=== PATIENT | male | born 1985 | race African-American/Black ===

== ENCOUNTER 2017-02-17 19:57 | Inpatient (IN) | payer MEDICAID ==
[~2017-02-17] VITALS: Ht 180.3 cm; Wt 71.7 kg
--- NOTE | 2017-02-17 20:00 | NUR ---
TO BED 8 A 31 YO MALE BIBRA [address] AND [employer] FOR SI, UNCOOPERATIVE DURING TRIAGE Addendum: 02/17/17 at 2323 by MUY TO BED 8 A 31 YO MALE [employer] [address] AND [employer] FOR SI. PATIENT VERBALIZED, "IM GOING TO KILL MYSELF IN ANY POSSIBLE WAY." PATIENT IS AAOX2, REFUSED TO ANSWER QUESTIONS. UNCOOPERATIVE. AGGRESSIVE. DOES NOT FOLLOW INSTRUCTIONS. INITIATED SAFETY AND SUICIDE PRECAUSTIONS. OFFLINE EDITOR YOU NOTIFIED. RECEIVED ORDERS. WILL MONITOR PATIENT.
[2017-02-17] MEDS ORDERED: LORAZEPAM INJ 2 MG/ML VIAL ONE (20:56)
[2017-02-17] MEDS ORDERED: LIDOCAINE 2% JEL UROJET 10 ML MM ONE (20:58)
[2017-02-17] MEDS ORDERED: HALOPERIDOL LACTATE INJ 5 MG/ML VIAL ONE (21:00)
[2017-02-17] MEDS ORDERED: LORAZEPAM INJ 2 MG/ML VIAL IM ONE (21:00)
--- NOTE | 2017-02-17 21:12 | NUR ---
urine sample collected via clean catch. called lab for fruit picker.
--- NOTE | 2017-02-17 21:15 | NUR ---
WASTED LIDOCAINE UROJECT ORDERED BY KATELIN ORTA. ORDER DC PATIENT AGREED TO URINATE THROUGH A URINAL AND GIVE SAMPLE FOR TESTING.
[2017-02-17] MEDS ORDERED: HALOPERIDOL LACTATE INJ 5 MG/ML VIAL IM ONE (21:30)
[2017-02-17 21:37] LABS: APPEARANCE,URINE Clear (CLEAR); BILIRUBIN,URINE SMALL (NEGATIVE); BLOOD, URINE Negative Ery/uL (NEGATIVE); COLOR,URINE Yellow (YELLOW); KETONES,URINE 15 (NEGATIVE); LEUKOCYTE ESTERASE ,URINE Negative (NEGATIVE); NITRITE, URINE Negative (NEGATIVE); PH,URINE 5.5 (5.0-8.0); PROTEIN,URINE 30 mg/dl (NEGATIVE); UGLUCOSE Negative (NEGATIVE); UROBILINOGEN,URINE 0.2 EU/dL (0.2)
[2017-02-17 21:37] LABS: BASOPHILS % (AUTO) 0.4 % (0.0-2.0); EOSINOPHILS # (AUTO) 0.1 /CMM (0.0-0.7); HEMATOCRIT 51 % (39-51); LYMPHOCYTES # (AUTO) 3.1 /CMM (0.8-4.8); LYMPHOCYTES % (AUTO) 36.2 % (20.0-44.0); MEAN CORPUSCULAR HEMOGLOBIN 23 PG (26.0-33.0); MEAN CORPUSCULAR HGB CONC 31 g/dl (31.0-36.0); MEAN CORPUSCULAR VOLUME 74 fL (80-96); MONOCYTES # (AUTO) 0.6 /CMM (0.1-1.30); MONOCYTES % (AUTO) 7.1 % (2.0-12.0); NEUTROPHILS # (AUTO) 4.8 /CMM (1.8-8.9); NEUTROPHILS % (AUTO) 55.3 % (43.0-81.0); PLATELET COUNT (AUTO) 209 /CMM (150-450); RDW COEFFICIENT OF VARIATION 15.5 (11.5-15.0); WHITE BLOOD COUNT (AUTO) 8.6 K/uL (4.3-11.0)
[2017-02-17 21:43] LABS: CALCIUM, SERUM 9.1 mg/dL (8.5-10.1); CARBON DIOXIDE 18 mmol/L (21-32); CHLORIDE 99 mmol/L (98-107); CREATININE 2.1 mg/dL (0.6-1.3); GLUCOSE 120 mg/dL (74-106); POTASSIUM 3.5 mmol/L (3.5-5.1); SODIUM SERUM 140 mmol/L (136-145); UREA NITROGEN, BLOOD 23 mg/dL (7-18)
[2017-02-17 21:49] LABS: ALANINE AMINOTRANSFERASE 10 U/L (12-78); ALBUMIN 4.3 g/dL (3.4-5.0); ALCOHOL, BLOOD < 3 mg/dL (0-0); ALKALINE PHOSPHATASE 81 U/L (46-116); ASPARTATE AMINOTRANSFERASE 19 U/L (15-37); BILIRUBIN,DIRECT 0.2 mg/dL (0.0-0.2); BILIRUBIN,TOTAL 1.1 mg/dL (0.2-1.0); SALICYLATE 7.1 mg/dL (2.8-20.0); TOTAL PROTEIN, SERUM 8.2 g/dL (6.4-8.2)
[2017-02-17 21:50] LABS: ACETAMINOPHEN 0 ug/ml (10-30)
[2017-02-17 21:52] LABS: BACTERIA,URINE Rare /HPF (None Seen); RBC,URINE 0-2 /HPF (0-2); SQUAMOUS EPITHELIAL CELL,UR Few /HPF (None Seen); WBC,URINE 0-2 /HPF (0-3)
--- NOTE | 2017-02-17 23:02 | NUR ---
REPORT GIVEN TO GIOVANY HERNANDEZ FOR LAZARA.
--- NOTE | 2017-02-17 23:22 | NUR ---
started a saline lock on the left hand g20.
[2017-02-18 00:51] VITALS: BP 126/69
--- NOTE | 2017-02-18 00:51 | NUR ---
MS RN OPENING NOTES: RECEIVED PT FROM ED. PT REFUSES TO CHANGE INTO THE GOWN AND HAVE HIS SKIN ASSESSED AT THE MOMENT. PT JUST WANTS TO SLEEP. PT HAS IV ON L HAND #20G HEP LOCK. INITIAL VITAL SIGNS ARE 126/69 HR 79, PULSE OX 100%, AND TEMP 97.8 ; WILL CONTINUE TO MONITOR PT
--- NOTE | 2017-02-18 01:00 | NUR ---
TRANSPORTED PATIENT TO ROOM 320-2, NO INCIDENT NOTED. VSS.
[2017-02-18] MEDS ORDERED: Z GUARD REMEDY 2 OZ OINT TP PRN (01:30)
[2017-02-18] MEDS ORDERED: ONDANSETRON HCL/PF 4 MG/2 ML VIAL IVP PRN (01:30)
[2017-02-18] MEDS ORDERED: MAG HYDROX/AL HYDROX/SIMETH 30 ML UDC PO PRN (01:30)
[2017-02-18] MEDS ORDERED: MAGNESIUM HYDROXIDE 30 ML UDC PO PRN (01:30)
[2017-02-18] MEDS ORDERED: ACETAMINOPHEN 325 MG TABLET PO PRN (01:30)
[2017-02-18] MEDS ORDERED: ZOLPIDEM TARTRATE 5 MG TABLET PO PRN (01:30)
[2017-02-18] MEDS ORDERED: HYDROCODONE/APAP 5/325MG 1 EACH TABLET PO PRN (01:30)
[2017-02-18] MEDS ORDERED: IV SET PRIMARY PUMP SET 1 EA INFUS.SET MC ONE ×2 (01:33→17:04)
[2017-02-18] MEDS ORDERED: IV NS 0.9% 1,000 ML ONE (01:36)
[2017-02-18] MEDS: IV NS 0.9% 1,000 ML IV PRN ×2 (01:40→21:08)
--- NOTE | 2017-02-18 04:16 | NUR ---
MS RN NOTES: ATTEMPTED TO HAVE PT CHANGE IN GOWN AND HAVE HIS SKIN ASSESSED. PT DOES NOT WANT TO BE BOTHERED AT THIS TIME AND WOULD JUST LIKE TO SLEEP. WILL CONTINUE TO MONITOR PT.
--- NOTE | 2017-02-18 05:08 | NUR ---
MS RN NOTES: PT GOT UP ONCE TO USE THE BATHROOM. OFFERED PT TO CHANGE IN GOWN AND HAVE A LOOK AT HIS SKIN. PT REFUSED AGAIN AT THIS TIME. WAS ABLE TO CONNECT PT TO FLUIDS. WILL CONTINUE TO MONITOR PT.
--- NOTE | 2017-02-18 07:06 | NUR ---
MS RN CLOSING NOTES: PT IS IN BED ASLEEP. OFFERED PT MULTIPLE TIMES TO CHANGE IN GOWN AND BE ASSESSED FOR SKIN ISSUES BUT REFUSED AND RESUMED BACK TO SLEEPING. PT HAS SITTER AT BEDSIDE. PT HAS IV ON L HAND #20G AND IS PATENT AND INTACT. FLUIDS ARE INFUSING AT IV NS 0.9% 1,000ML AT 75ML/BED KEPT IN LOCKED, LOWEST POSITION, AND SIDE RAILS X 2 UP. ENDORSED TO AM NURSE FOR LAZARA.
--- NOTE | 2017-02-18 07:10 | NUR ---
MS/RN AM NOTES RECEIVED PATIENT IN BED, SLEEPING COMFORTABLY, NO S/SX SOB, OR DISTRESS, NO S/SX OF PAIN. . IV PERIPHERAL LINE ON LEFT HAND INTACT, PATENT. SITTER AT THE BEDSIDE, BED IN LOW POSITION, 2SR UP FOR SAFETY, WITH CALL LIGHT WITHIN EASY REACH. WILL CONTINUE TO MONITOR ACCORDINGLY
[2017-02-18 08:00] VITALS: BP 126/69
[2017-02-18] MEDS: PANTOPRAZOLE 40 MG TABLET.DR PO SCH (09:13)
[2017-02-18] MEDS ORDERED: QUETIAPINE FUMARATE 25 MG TABLET PO PRN (11:00)
[2017-02-18] MEDS ORDERED: DEXTROSE 50%-WATER 50 ML DISP.SYRIN IV PRN (11:00)
[2017-02-18] MEDS ORDERED: INSULIN REGULAR, HUMAN 100 UNIT/ML 3 ML VIAL SQ PRN (11:00)
[2017-02-18] MEDS: BLOOD SUGAR DIAGNOSTIC 1 EACH STRIP IN SCH ×3 (12:00→22:01)
--- NOTE | 2017-02-18 12:25 | NUR ---
PATIENT IS SLEEPING, REFUSED ACCU-CHECK, DOESN'T WANT TO BE BOTHERED. NO S/SX HYPO OR HYPERGLYCEMIA NOTED. RISKS AND CONSEQUENCES EXPLAINED
--- NOTE | 2017-02-18 17:24 | NUR ---
BLOOD SUGAR CHECKED, READING 116, NO COVERAGE, WITH GOOD APPETITE. PATIENT RECEIVED A SHOWER. GOWN PROVIDED. IN HAPPY MOOD. IV PERIPHERAL LINE REPLACED D/T POOLED OUT. STARTED PERIPHERAL IV LINE ON RIGHT WRIST 22 G, PATENT, INTACT, TOLERATED WELL, DENIES PAIN. WITH NS 75CC/H
--- NOTE | 2017-02-18 19:06 | NUR ---
MS/RN CLOSING NOTES PATIENT IS RESTING IN THE BED, COMFORTABLE , IN HAPPY MOOD, SITTER AT THE BEDSIDE, NO CHANGES IN CONDITION THROUGHOUT THE SHIFT. IV LINE LEFT WRIST INTACT, INFUSING NS 0.9%, 75 CC/H, NO S/SX FLUID OVERLOAD NOTED, BREATHING EVEN, UNLABORED, ON RA, SATURATION 98%. KEPT CLEAN, DRY, NEEDS MET IN TIMELY MANNER, WITH CALL LIGHT WITHIN EASY REACH ALL THE TIME. WILL ENDORSE TO THE NEXT SHIFT FOR LAZARA
--- NOTE | 2017-02-18 19:39 | NUR ---
MS MEÑO INITIAL NOTES RECEIVED REPORT FROM AM NURSE VAHID, CHECKED PT HE'S AWAKE AND ALERT WATCHING TV AT THIS TIME, PLEASANT WHEN YOU TALKED TO HIM , NO SUICIDAL IDEATION NOTED. STATED MUCH FEEL BETTER AFTER HE GOT REST FROM LAST NIGHT AND HAD SHOWER TODAY. NO AGITATION NOTED AT THIS TIME. IVF STILL INFUSING ON HIS RIGHT WRIST GAUGE 22 NS AT 75ML/HR. KEPT HIM SAFE AND COMFORTABLE AT ALL TIMES. WILL CONTINUE CLOSELY MONITORING.
[2017-02-18 19:56] VITALS: BP 102/71
--- NOTE | 2017-02-18 22:00 | NUR ---
CERTIFIED ORTHOTIST PRACTICE MANAGER/NOTES BLOOD SUGAR 101, NO SIGNS OF HYPO GLYCEMIA NOTED, NO INSULIN GIVEN. PT RESTING COMFORTABLY IN BED WITHOUT ANY ACUTE DISTRESS NOTED. SNACKS SERVED PER PT REQUESTED. WILL CONTINUE CLOSELY MONITORING.
--- NOTE | 2017-02-19 | NUR ---
RESEARCH SPEC/NOTES PT SLEEPING AT THIS TIME WITHOUT ANY ACUTE DISTRESS NOTED.
--- NOTE | 2017-02-19 04:00 | NUR ---
CASTING MACHINE SERVICE OPERATOR NOTES PT WOKE UP AND ASKING FOR SOMETHING TO EAT, COFFEE AND SANDWICH SERVED. NO SIGNS OF ANY AGITATION, NO SUICIDAL IDEATION NOTED.
--- NOTE | 2017-02-19 06:14 | NUR ---
STEAM FITTER SUPERVISOR/NOTES BLOOD SUGAR 159, NO INSULIN GIVEN PER PT REQUESTED TO HAVE IT LATER AFTER LUNCH. PER PT HES NOT TAKING ANY INSULIN AT ALL. NO SIGNS OF HYPER GLYCEMIA NOTED. WILL CONTINUE TO MONITOR.
[2017-02-19] MEDS: BLOOD SUGAR DIAGNOSTIC 1 EACH STRIP IN SCH ×3 (07:01→17:30)
[2017-02-19] MEDS: PANTOPRAZOLE 40 MG TABLET.DR PO SCH (07:02)
[2017-02-19] MEDS: IV NS 0.9% 1,000 ML IV PRN ×2 (07:02→10:11)
--- NOTE | 2017-02-19 07:16 | NUR ---
MS LAB SPECIALIST CLOSING NOTES PT RESTING WITH COVERED WITH A BLANKET BUT WHEN YOU STARTED TALKING TO HIM HE RESPONSE APPROPRIATELY, STABLE HERB THE NIGHT AND FOLLOWED INSTRUCTION. NO SIGNS OF ANY SUICIDAL IDEATION NOTED. NOT IN ANY DISCOMFORT OR ANY PAIN. ENDORSE TO AM NURSE ADAMS FOR CONTINUITY OF CARE. SITTER AT THE BEDSIDE FOR SAFETY.
[2017-02-19 07:32] LABS: BASOPHILS % (AUTO) 0.7 % (0.0-2.0); EOSINOPHILS # (AUTO) 0.1 /CMM (0.0-0.7); EOSINOPHILS % (AUTO) 1.4 % (0.0-6.0); HEMATOCRIT 45 % (39-51); HEMOGLOBIN 14.1 g/dL (13.5-17.5); LYMPHOCYTES # (AUTO) 2.2 /CMM (0.8-4.8); LYMPHOCYTES % (AUTO) 37.2 % (20.0-44.0); MEAN CORPUSCULAR HEMOGLOBIN 24 PG (26.0-33.0); MEAN CORPUSCULAR HGB CONC 32 g/dl (31.0-36.0); MEAN CORPUSCULAR VOLUME 76 fL (80-96); MONOCYTES # (AUTO) 0.4 /CMM (0.1-1.30); MONOCYTES % (AUTO) 7.6 % (2.0-12.0); NEUTROPHILS # (AUTO) 3.1 /CMM (1.8-8.9); NEUTROPHILS % (AUTO) 53.1 % (43.0-81.0); PLATELET COUNT (AUTO) 189 /CMM (150-450); RDW COEFFICIENT OF VARIATION 15.8 (11.5-15.0); WHITE BLOOD COUNT (AUTO) 5.8 K/uL (4.3-11.0)
[2017-02-19 07:52] LABS: ALBUMIN 3.2 g/dL (3.4-5.0); BILIRUBIN,TOTAL 0.5 mg/dL (0.2-1.0); CALCIUM, SERUM 8.2 mg/dL (8.5-10.1); CREATININE 1.3 mg/dL (0.6-1.3); MAGNESIUM 2.2 mg/dL (1.8-2.4); PHOSPHORUS 3.2 mg/dL (2.5-4.9); POTASSIUM 3.2 mmol/L (3.5-5.1); TOTAL PROTEIN, SERUM 6.2 g/dL (6.4-8.2)
[2017-02-19 08:00] VITALS: BP 114/70
--- NOTE | 2017-02-19 08:00 | NUR ---
m/s stamper blocker: initial assessment received pt in bed awake, a/ox4. denies si/hi at this time. pt remains on 1:1 sitter. no c/o pain or any discomfort. instructed to call for assistance. will continue to monitor.
[2017-02-19 09:02] LABS: CREATINE KINASE MB 2.3 ng/mL (0-3.6)
[2017-02-19] MEDS ORDERED: POTASSIUM CHLORIDE 20 MEQ POWDER PACKET PO ONE ×2 (10:00)
--- NOTE | 2017-02-19 10:00 | NUR ---
m/s ram car operator: md visit seen by fern mejia ([facility]) at this time. pt remains stable. denies si/hi a this time. pt for d'c planning today. awaiting orders. pt aware. will continue to monitor.
--- NOTE | 2017-02-19 10:23 | NUR ---
Social service consult requested by Eddieamber Scott for homelessness and suicidal ideation. Per H&P report Dr. Santos, pt. is a 31 year old male with no reported PMH and was brought in by ambulance from a sober living for suicidal ideation. Pt endorses auditory hallucinations that started 1 week ago but denies visual or tactile hallucinations. ELEAZAR met with pt. bedside. Pt. is A&O x 4. Pt. was cooperative with social insurance analyst during the assessment. Pt. is currently homeless. Pt. has been homeless for the past few months. Prior to being homeless pt. states he was "living with his folks". Pt. was evaluated yesterday by psychiatrist Dr. Erickson, however pt. was uncooperative. Pt. denies suicidal/homicidal ideations and visual/auditory hallucinations at this time. Pt. denies any history of psychiatric diagnosis and states he has had a psychiatric hospitalization as a minor. Pt. states he occasionally drinks (approximately 2 beers/wk), uses marijuana and smokes 1-2 packs of cigarettes per day. Pt. is currently unemployed and has no source of income. ELEAZAR offered half-way placement to pt. however pt. informed SW his girlfriend will be picking him up upon discharge and he will be residing in [place]. ELEAZAR gave pt. the following resources: Homeless patient resources that included food balderas, emergency housing and shelters, hot meals and showers, mens recovery programs, list of mental health services and contact information to [facility] located at [id number] [place] [address]. . Homeless patient waiver form was signed by pt. and placed in pt's chart. ELEAZAR updated pharmacist in charge Sarkis regarding discharge plan.
--- NOTE | 2017-02-19 11:00 | NUR ---
m/s comfort station supervisor: psych f/u seen by dr. childress and pt cleared for discharge.
--- NOTE | 2017-02-19 13:00 | NUR ---
m/s pack operator: notes pt resting comfortable in bed with no distress noted. denies si/hi at this time. sitter remains at bedside. will continue to monitor.
--- NOTE | 2017-02-19 15:30 | NUR ---
m/s show host/hostess: notes order received to d'c pt to and with Discharge instructions <02/19/2017. cleared by psychiatrist Follow, up with [facility] Smoking cessation education. order acknowledged.
--- NOTE | 2017-02-19 16:00 | NUR ---
m/s editor sound: d'c instructions discharge instructions given to pt and verbalized understanding, pt stated, "i will follow up at [facility]." h/l removed with tip intact with no bleeding, no swelling, and no redness noted. pt request to eat dinner and go after. cn made aware. early dinner ordered. instructed to call for assistance. pt denies si/hi when asked. pt medically stable for discharge and cleared by psychiatrist. will continue to monitor.
--- NOTE | 2017-02-19 17:00 | NUR ---
m/s hospital manager: notes early dinner served. awaiting for girlfriend to pick him up.
--- NOTE | 2017-02-19 18:05 | NUR ---
m/s track repair person: discharged discharged home accompanied by girlfriend via private car in stable condition. pt denies si/hi at time of discharged.
[2017-02-20 13:32] LABS: PTH, INTACT 22 pg/mL (15-65)
[2017-02-23 07:23] LABS: CALCITRIOL VIT D,1, 25 DIHYDRO 30.6 pg/mL (19.9-79.3)
[2017-02-23 10:17] LABS: *SPE A/G RATIO 1.2 (0.7-1.7); *SPE ALBUMIN 3.5 g/dL (2.9-4.4); *SPE ALPHA-1-GLOBULIN 0.2 g/dL (0.0-0.4); *SPE ALPHA-2-GLOBULIN 0.6 g/dL (0.4-1.0); *SPE BETA GLOBULIN 0.8 g/dL (0.7-1.3); *SPE GLOBULIN, TOTAL 2.9 g/dL (2.2-3.9); *SPE M-SPIKE Not Observed g/dL (Not Observed); *SPE PROTEIN TOTAL 6.4 g/dL (6.0-8.5); *SPEGAMMA GLOBULIN 1.2 g/dL (0.4-1.8)
== END 2017-02-19 18:05 | disposition home or self-care (01) | DRG 460 ==
LOC: ER 20:02 → MED 23:05
PROVIDERS: ADMIT Nurse Practitioner Acute Care; ATTEND Nurse Practitioner Acute Care
PROC: HZ35ZZZ Individual Counseling for Substance Abuse Treatment, Vocational (ICD-10-PCS; principal; 2017-02-19)
DX: N17.0 Acute kidney failure with tubular necrosis (principal); E87.2 Acidosis; R45.851 Suicidal ideations; F32.3 Major depressive disorder, single episode, severe with psychotic features; N18.9 Chronic kidney disease, unspecified; F17.210 Nicotine dependence, cigarettes, uncomplicated; F29 Unspecified psychosis not due to a substance or known physiological condition; Z59.0 Homelessness; F19.90 Other psychoactive substance use, unspecified, uncomplicated; Z71.6 Tobacco abuse counseling
CPT/HCPCS: 36415; 80048-TC; 80053-TC; 80061-TC; 80076-TC; 80305; 81000-TC; 82306; 82550-TC; 82553-TC; 82652; 82962-TC; 83735-TC; 83970; 84100-TC; 84155; 84165; 85025-TC; 86850-TC; 87081-TC; A4606; G0480; G6039-TC; J1630; J1815; J2060; J3490; J7030; Z7610